=== PATIENT | male | born 1965 | race Caucasian/White ===

== ENCOUNTER → 2021-10-07 | Outpatient (REF) | payer SELFPAY ==
[2021-10-07 08:32] LABS: Erythrocyte Sedimentation Rate 59 mm/hr (0-20)
[2021-10-07 08:34] LABS: Absolute Lymphocyte Count 1.48 X10^3/uL (0.83-4.51); Absolute Neutrophil Count 2.8 X10^3/uL (2.0-7.7); Basophil# 0.06 X10^3/uL; Basophil% 1.2 % (0-1); Eosinophils% 5.8 % (0-5); Hemoglobin 9.1 g/dL (13.0-16.5); Lymphocyte # 1.48 X10^3/ul (0.83-4.51); Lymphocyte % 28.5 % (19-41); Mean Corp Hgb Conc 30.3 g/dL (32-36); Mean Corpuscular Hgb 27.8 pg (27.0-32.0); Mean Corpuscular Volume 91.7 fL (80-94); Mean Platelet Vol. 9.2 fl (6.2-12.0); Monocyte# 0.52 X10^3/uL; NRBC Flagged by Analyzer 0 % (0-5); Neutrophil # 2.81 X10^3/uL (2.7-7.7); Neutrophil % 54.1 % (47-70); Platelet Count 374 K/mm3 (150-450); RBC Distribution Width SD 50.4 fl (35.1-43.9); Red Blood Count 3.27 M/mm3 (4.6-6.2); White Blood Count 5.2 K/mm3 (4.4-11.0)
[2021-10-07 08:45] LABS: ALB/GLOB Ratio 0.6 RATIO (0.9-2.4); AST(SGOT) 14 U/L (15-37); Alanine Aminotransfer ALT/SGPT 11 U/L (16-61); Albumin, Serum 2.6 g/dL (3.2-5.0); Alkaline Phosphatase 141 U/L (45-117); Anion Gap 7 (5-15); BUN 21 mg/dL (7-18); BUN/Creat Ratio 22.2 RATIO (10-20); Calcium,Total 8.9 mg/dL (8.5-10.1); Chloride 107 mmol/L (98-107); Creatinine, Serum 0.94 mg/dL (0.70-1.30); EST Glomerular Filtration Rate 87 mL/min (>60); Est Glom Filt Rate - Afr Amer 105 mL/min (>60); Globulin 4.7 g/dL (2.2-4.2); Glucose 88 mg/dL (74-106); Potassium 3.8 mmol/L (3.5-5.1); Protein, Total 7.3 g/dL (6.4-8.2); Sodium Level 142 mmol/L (136-145)
== END | disposition home or self-care (01) ==
LOC: OLS.SANC 06:10
PROVIDERS: Visit Provider Internal Medicine
DX: I10 Essential (primary) hypertension (principal); J44.9 Chronic obstructive pulmonary disease, unspecified; E03.9 Hypothyroidism, unspecified
CPT/HCPCS: 80053; 85025; 85652; 86140

== ENCOUNTER → 2021-10-14 | Outpatient (REF) | payer MEDICARE, MEDICAID, SELFPAY ==
[2021-10-14 09:52] LABS: Absolute Lymphocyte Count 0.64 X10^3/uL (0.83-4.51); Absolute Neutrophil Count 2.3 X10^3/uL (2.0-7.7); Basophil# 0.04 X10^3/uL; Basophil% 1.1 % (0-1); Eosinophil# 0.24 X10^3/uL; Eosinophils% 6.8 % (0-5); Hematocrit 46.4 % (40-54); Hemoglobin 13.9 g/dL (13.0-16.5); Lymphocyte # 0.64 X10^3/ul (0.83-4.51); Lymphocyte % 18.1 % (19-41); Mean Corpuscular Hgb 26.3 pg (27.0-32.0); Mean Corpuscular Volume 87.7 fL (80-94); Mean Platelet Vol. 9.1 fl (6.2-12.0); Monocyte# 0.31 X10^3/uL; Monocyte% 8.8 % (0-10); NRBC Flagged by Analyzer 0 % (0-5); Neutrophil # 2.28 X10^3/uL (2.7-7.7); Neutrophil % 64.6 % (47-70); Platelet Count 194 K/mm3 (150-450); RBC Distribution Width CV 14.9 % (11.6-14.6); RBC Distribution Width SD 47.8 fl (35.1-43.9); Red Blood Count 5.29 M/mm3 (4.6-6.2); White Blood Count 3.5 K/mm3 (4.4-11.0)
[2021-10-14 10:06] LABS: Erythrocyte Sedimentation Rate 40 mm/hr (0-20)
[2021-10-14 10:20] LABS: ALB/GLOB Ratio 0.6 RATIO (0.9-2.4); AST(SGOT) 14 U/L (15-37); Alanine Aminotransfer ALT/SGPT 12 U/L (16-61); Albumin, Serum 2.7 g/dL (3.2-5.0); Alkaline Phosphatase 113 U/L (45-117); Anion Gap 7 (5-15); BUN 18 mg/dL (7-18); BUN/Creat Ratio 18.1 RATIO (10-20); Calcium,Total 9.1 mg/dL (8.5-10.1); Chloride 105 mmol/L (98-107); EST Glomerular Filtration Rate 82 mL/min (>60); Est Glom Filt Rate - Afr Amer 99 mL/min (>60); Globulin 4.6 g/dL (2.2-4.2); Glucose 110 mg/dL (74-106); Potassium 4.1 mmol/L (3.5-5.1); Protein, Total 7.3 g/dL (6.4-8.2); Sodium Level 140 mmol/L (136-145)
== END | disposition home or self-care (01) ==
LOC: OLS.SANC 04:00
PROVIDERS: Referring Provider Internal Medicine; Visit Provider Internal Medicine
DX: I10 Essential (primary) hypertension (principal); J44.9 Chronic obstructive pulmonary disease, unspecified; M19.90 Unspecified osteoarthritis, unspecified site
CPT/HCPCS: 80053; 85025; 85652; 86140

== ENCOUNTER → 2021-10-21 | Outpatient (REF) | payer MEDICARE, MEDICAID, SELFPAY ==
[2021-10-21 09:07] LABS: Erythrocyte Sedimentation Rate 70 mm/hr (0-20)
[2021-10-21 09:09] LABS: Absolute Lymphocyte Count 1.06 X10^3/uL (0.83-4.51); Absolute Neutrophil Count 4.4 X10^3/uL (2.0-7.7); Basophil# 0.07 X10^3/uL; Basophil% 1.1 % (0-1); Eosinophil# 0.33 X10^3/uL; Eosinophils% 5.2 % (0-5); Hemoglobin 9.4 g/dL (13.0-16.5); Lymphocyte # 1.06 X10^3/ul (0.83-4.51); Lymphocyte % 16.6 % (19-41); Mean Corp Hgb Conc 30.3 g/dL (32-36); Mean Corpuscular Hgb 26.6 pg (27.0-32.0); Mean Corpuscular Volume 87.6 fL (80-94); Mean Platelet Vol. 9.4 fl (6.2-12.0); Monocyte# 0.52 X10^3/uL; Monocyte% 8.1 % (0-10); NRBC Flagged by Analyzer 0 % (0-5); Neutrophil # 4.38 X10^3/uL (2.7-7.7); Neutrophil % 68.5 % (47-70); Platelet Count 270 K/mm3 (150-450); RBC Distribution Width CV 14.7 % (11.6-14.6); RBC Distribution Width SD 47.3 fl (35.1-43.9); Red Blood Count 3.54 M/mm3 (4.6-6.2); White Blood Count 6.4 K/mm3 (4.4-11.0)
[2021-10-21 09:28] LABS: ALB/GLOB Ratio 0.6 RATIO (0.9-2.4); AST(SGOT) 10 U/L (15-37); Alanine Aminotransfer ALT/SGPT 9 U/L (16-61); Albumin, Serum 2.9 g/dL (3.2-5.0); Alkaline Phosphatase 115 U/L (45-117); Anion Gap 5 (5-15); BUN 21 mg/dL (7-18); BUN/Creat Ratio 21.6 RATIO (10-20); Calcium,Total 9.2 mg/dL (8.5-10.1); Chloride 106 mmol/L (98-107); Creatinine, Serum 0.97 mg/dL (0.70-1.30); EST Glomerular Filtration Rate 84 mL/min (>60); Est Glom Filt Rate - Afr Amer 102 mL/min (>60); Globulin 4.8 g/dL (2.2-4.2); Glucose 91 mg/dL (74-106); Potassium 4.3 mmol/L (3.5-5.1); Protein, Total 7.7 g/dL (6.4-8.2); Sodium Level 139 mmol/L (136-145)
== END | disposition home or self-care (01) ==
LOC: OLS.SANC 04:00
PROVIDERS: Referring Provider Internal Medicine; Visit Provider Internal Medicine
DX: M00.9 Pyogenic arthritis, unspecified (principal)
CPT/HCPCS: 36415; 80053; 85025; 85652; 86140

== ENCOUNTER → 2021-10-28 | Outpatient (REF) | payer MEDICARE, MEDICAID, SELFPAY ==
[2021-10-28 09:00] LABS: Erythrocyte Sedimentation Rate 35 mm/hr (0-20)
[2021-10-28 09:02] LABS: Absolute Lymphocyte Count 1.25 X10^3/uL (0.83-4.51); Absolute Neutrophil Count 4.4 X10^3/uL (2.0-7.7); Basophil# 0.09 X10^3/uL; Basophil% 1.3 % (0-1); Eosinophil# 0.51 X10^3/uL; Eosinophils% 7.3 % (0-5); Lymphocyte # 1.25 X10^3/ul (0.83-4.51); Lymphocyte % 17.8 % (19-41); Mean Corp Hgb Conc 30.3 g/dL (32-36); Mean Corpuscular Hgb 26.4 pg (27.0-32.0); Mean Corpuscular Volume 87.1 fL (80-94); Mean Platelet Vol. 9.8 fl (6.2-12.0); Monocyte# 0.77 X10^3/uL; NRBC Flagged by Analyzer 0 % (0-5); Neutrophil # 4.37 X10^3/uL (2.7-7.7); Neutrophil % 62.2 % (47-70); Platelet Count 309 K/mm3 (150-450); RBC Distribution Width SD 47.6 fl (35.1-43.9); Red Blood Count 3.79 M/mm3 (4.6-6.2)
[2021-10-28 09:05] LABS: ALB/GLOB Ratio 0.6 RATIO (0.9-2.4); AST(SGOT) 17 U/L (15-37); Alanine Aminotransfer ALT/SGPT 7 U/L (16-61); Albumin, Serum 3.1 g/dL (3.2-5.0); Alkaline Phosphatase 123 U/L (45-117); Anion Gap 6 (5-15); BUN 19 mg/dL (7-18); BUN/Creat Ratio 18.3 RATIO (10-20); Calcium,Total 9.9 mg/dL (8.5-10.1); Chloride 108 mmol/L (98-107); Creatinine, Serum 1.04 mg/dL (0.70-1.30); EST Glomerular Filtration Rate 78 mL/min (>60); Est Glom Filt Rate - Afr Amer 94 mL/min (>60); Glucose 79 mg/dL (74-106); Potassium 3.8 mmol/L (3.5-5.1); Protein, Total 8.1 g/dL (6.4-8.2); Sodium Level 142 mmol/L (136-145)
== END | disposition home or self-care (01) ==
LOC: OLS.SANC 05:00
PROVIDERS: Visit Provider Internal Medicine
DX: E03.9 Hypothyroidism, unspecified (principal); M00.20 Other streptococcal arthritis, unspecified joint; J44.9 Chronic obstructive pulmonary disease, unspecified
CPT/HCPCS: 36415; 80053; 85025; 85652; 86140

== ENCOUNTER → 2022-12-01 | Outpatient (REF) | payer MEDICARE, MEDICAID, SELFPAY ==
[2022-12-01 09:31] LABS: Absolute Lymphocyte Count 0.93 X10^3/uL (0.83-4.51); Absolute Neutrophil Count 4.8 X10^3/uL (2.0-7.7); Basophil# 0.07 X10^3/uL; Eosinophil# 0.53 X10^3/uL; Eosinophils% 7.7 % (0-5); Hematocrit 33.6 % (40-54); Hemoglobin 9.7 g/dL (13.0-16.5); Lymphocyte # 0.93 X10^3/ul (0.83-4.51); Lymphocyte % 13.5 % (19-41); Mean Corp Hgb Conc 28.9 g/dL (32-36); Mean Corpuscular Hgb 26.3 pg (27.0-32.0); Mean Corpuscular Volume 91.1 fL (80-94); Monocyte# 0.48 X10^3/uL; NRBC Flagged by Analyzer 0 % (0-5); Neutrophil # 4.83 X10^3/uL (2.7-7.7); Neutrophil % 70.4 % (47-70); Platelet Count 345 K/mm3 (150-450); RBC Distribution Width CV 15.9 % (11.6-14.6); RBC Distribution Width SD 52.8 fl (35.1-43.9); Red Blood Count 3.69 M/mm3 (4.6-6.2); White Blood Count 6.9 K/mm3 (4.4-11.0)
[2022-12-01 09:43] LABS: Vancomycin, Trough Level 16.4 ug/mL (5.0-15.0)
[2022-12-01 09:50] LABS: Creatinine, Serum 1.11 mg/dL (0.70-1.30); EST Glomerular Filtration Rate 72 mL/min (>60); Est Glom Filt Rate - Afr Amer 87 mL/min (>60)
== END ==
LOC: OLS.SANC 08:25
PROVIDERS: Visit Provider Internal Medicine
DX: J44.9 Chronic obstructive pulmonary disease, unspecified (principal); I10 Essential (primary) hypertension; E03.9 Hypothyroidism, unspecified; M13.811 Other specified arthritis, right shoulder
CPT/HCPCS: 36415; 80202; 82565; 85025

== ENCOUNTER → 2022-12-03 | Outpatient (REF) | payer OTHER, MEDICAID, SELFPAY ==
[2022-12-03 09:05] LABS: Hematocrit 31.3 % (40-54); Hemoglobin 9.2 g/dL (13.0-16.5); Mean Corp Hgb Conc 29.4 g/dL (32-36); Mean Corpuscular Hgb 26.4 pg (27.0-32.0); Mean Corpuscular Volume 89.9 fL (80-94); Mean Platelet Vol. 9.1 fl (6.2-12.0); Platelet Count 308 K/mm3 (150-450); RBC Distribution Width SD 53.2 fl (35.1-43.9); Red Blood Count 3.48 M/mm3 (4.6-6.2); White Blood Count 6.8 K/mm3 (4.4-11.0)
[2022-12-03 09:20] LABS: Anion Gap 7 (5-15); BUN 18 mg/dL (7-18); BUN/Creat Ratio 16.7 RATIO (10-20); Calcium,Total 8.9 mg/dL (8.5-10.1); Chloride 112 mmol/L (98-107); Creatinine, Serum 1.08 mg/dL (0.70-1.30); EST Glomerular Filtration Rate 74 mL/min (>60); Est Glom Filt Rate - Afr Amer 90 mL/min (>60); Glucose 84 mg/dL (74-106); Potassium 4.3 mmol/L (3.5-5.1); Sodium Level 145 mmol/L (136-145)
== END ==
LOC: OLS.SANC 05:00
PROVIDERS: Visit Provider Internal Medicine
DX: N40.0 Benign prostatic hyperplasia without lower urinary tract symptoms (principal); I10 Essential (primary) hypertension
CPT/HCPCS: 36415; 80048; 85027

== ENCOUNTER → 2022-12-09 | Outpatient (REF) | payer OTHER, MEDICAID, SELFPAY ==
[2022-12-09 09:44] LABS: Absolute Lymphocyte Count 1.02 X10^3/uL (0.83-4.51); Absolute Neutrophil Count 6.2 X10^3/uL (2.0-7.7); Basophil# 0.07 X10^3/uL; Basophil% 0.8 % (0-1); Eosinophil# 0.68 X10^3/uL; Eosinophils% 7.7 % (0-5); Hemoglobin 9.7 g/dL (13.0-16.5); Lymphocyte # 1.02 X10^3/ul (0.83-4.51); Lymphocyte % 11.6 % (19-41); Mean Corp Hgb Conc 28.5 g/dL (32-36); Mean Corpuscular Hgb 25.1 pg (27.0-32.0); Mean Corpuscular Volume 88.1 fL (80-94); Mean Platelet Vol. 9.3 fl (6.2-12.0); Monocyte% 9.1 % (0-10); NRBC Flagged by Analyzer 0 % (0-5); Neutrophil # 6.18 X10^3/uL (2.7-7.7); Neutrophil % 70.2 % (47-70); Platelet Count 297 K/mm3 (150-450); RBC Distribution Width CV 16.2 % (11.6-14.6); RBC Distribution Width SD 52.3 fl (35.1-43.9); Red Blood Count 3.86 M/mm3 (4.6-6.2); White Blood Count 8.8 K/mm3 (4.4-11.0)
[2022-12-09 10:01] LABS: Vancomycin, Trough Level 17.9 ug/mL (5.0-15.0)
[2022-12-09 10:06] LABS: Creatinine, Serum 1.28 mg/dL (0.70-1.30); EST Glomerular Filtration Rate 61 mL/min (>60); Est Glom Filt Rate - Afr Amer 74 mL/min (>60)
== END ==
LOC: OLS.SANC 05:00
PROVIDERS: Visit Provider Internal Medicine
DX: J44.9 Chronic obstructive pulmonary disease, unspecified (principal); I10 Essential (primary) hypertension; B95.61 Methicillin susceptible Staphylococcus aureus infection as the cause of diseases classified elsewhere; Z47.1 Aftercare following joint replacement surgery
CPT/HCPCS: 36415; 80202; 82565; 85025

== ENCOUNTER → 2022-12-15 | Outpatient (REF) | payer OTHER, MEDICAID, SELFPAY ==
[2022-12-15 09:47] LABS: Absolute Lymphocyte Count 1.55 X10^3/uL (0.83-4.51); Absolute Neutrophil Count 6.1 X10^3/uL (2.0-7.7); Basophil# 0.09 X10^3/uL; Eosinophil# 0.53 X10^3/uL; Hematocrit 38.2 % (40-54); Hemoglobin 10.7 g/dL (13.0-16.5); Lymphocyte # 1.55 X10^3/ul (0.83-4.51); Lymphocyte % 17.4 % (19-41); Mean Corpuscular Hgb 24.5 pg (27.0-32.0); Mean Corpuscular Volume 87.4 fL (80-94); Mean Platelet Vol. 9.6 fl (6.2-12.0); Monocyte# 0.58 X10^3/uL; Monocyte% 6.5 % (0-10); NRBC Flagged by Analyzer 0 % (0-5); Neutrophil # 6.09 X10^3/uL (2.7-7.7); Neutrophil % 68.4 % (47-70); Platelet Count 392 K/mm3 (150-450); RBC Distribution Width CV 16.3 % (11.6-14.6); RBC Distribution Width SD 52.4 fl (35.1-43.9); Red Blood Count 4.37 M/mm3 (4.6-6.2); White Blood Count 8.9 K/mm3 (4.4-11.0)
[2022-12-15 09:51] LABS: Anion Gap 2 (5-15); BUN 22 mg/dL (7-18); BUN/Creat Ratio 16.1 RATIO (10-20); Calcium,Total 9.4 mg/dL (8.5-10.1); Chloride 108 mmol/L (98-107); Creatinine, Serum 1.37 mg/dL (0.70-1.30); EST Glomerular Filtration Rate 56 mL/min (>60); Est Glom Filt Rate - Afr Amer 68 mL/min (>60); Glucose 109 mg/dL (74-106); Sodium Level 136 mmol/L (136-145)
[2022-12-15 09:59] LABS: Vancomycin, Trough Level 12.9 ug/mL (5.0-15.0)
== END ==
LOC: OLS.SANC 05:00
PROVIDERS: Visit Provider Internal Medicine
DX: I10 Essential (primary) hypertension; B95.61 Methicillin susceptible Staphylococcus aureus infection as the cause of diseases classified elsewhere
CPT/HCPCS: 36415; 80048; 80202; 85025

== ENCOUNTER 2024-04-07 16:36 | Emergency (ER) | payer MEDICARE, MEDICAID, SELFPAY ==
[2024-04-07] VITALS (9 sets, daily range): BP systolic 103–128; BP diastolic 60–77; PULSE 75–86; RESP 13–16; TEMP 35.7–36.9; O2SAT 94–98; BMI 22.9
[2024-04-07] MEDS: 0.9% Normal Saline (1000mL) 1,000 ML 999 ML IV (17:33)
[2024-04-07 17:48] LABS: Absolute Neutrophil Count 11.9 X10^3/uL (2.0-7.7); Basophil# 0.02 X10^3/uL; Basophil% 0.1 % (0-1); Eosinophil# 5.11 X10^3/uL; Eosinophils% 27.9 % (0-5); Hematocrit 31.2 % (40-54); Hemoglobin 9.6 g/dL (13.0-16.5); Lymphocyte % 3.8 % (19-41); Mean Corp Hgb Conc 30.8 g/dL (32-36); Mean Corpuscular Hgb 25.9 pg (27.0-32.0); Mean Corpuscular Volume 84.3 fL (80-94); Monocyte# 0.36 X10^3/uL; NRBC Flagged by Analyzer 0 % (0-5); Neutrophil # 11.93 X10^3/uL (2.7-7.7); Neutrophil % 65.2 % (47-70); POSITIVE DIFFERENTIAL YES; POSITIVE MORPHOLOGY YES; Platelet Count 120 K/mm3 (150-450); RBC Distribution Width CV 25.2 % (11.6-14.6); RBC Distribution Width SD 76.8 fl (35.1-43.9); White Blood Count 18.3 K/mm3 (4.4-11.0)
[2024-04-07 17:51] LABS: Differential Indicated SCAN CRITERIA MET
[2024-04-07 18:12] LABS: ALB/GLOB Ratio 0.7 RATIO (0.9-2.4); AST(SGOT) 10 U/L (15-37); Alanine Aminotransfer ALT/SGPT 15 U/L (16-61); Albumin, Serum 2.1 g/dL (3.2-5.0); Alkaline Phosphatase 99 U/L (45-117); Anion Gap 8 (5-15); BUN 81 mg/dL (7-18); BUN/Creat Ratio 15.3 RATIO (10-20); Calcium,Total 7.9 mg/dL (8.5-10.1); Chloride 109 mmol/L (98-107); Creatinine, Serum 5.31 mg/dL (0.70-1.30); EST Glomerular Filtration Rate 12 mL/min (>60); Est Glom Filt Rate - Afr Amer 14 mL/min (>60); Estimated Creatinine Clearance 15.84 ml/min; Globulin 3.1 g/dL (2.2-4.2); Glucose 97 mg/dL (74-106); Potassium 3.6 mmol/L (3.5-5.1); Protein, Total 5.2 g/dL (6.4-8.2); Sodium Level 138 mmol/L (136-145)
[2024-04-07 18:19] LABS: Differential Comment SCANNED
[2024-04-07 18:20] LABS: Anisocytosis 2+; Crenated RBC 1+; Hypochromasia 1+
[2024-04-07 18:21] LABS: Ovalocyte RARE; Schistocytes RARE
[2024-04-07 18:30] LABS: Lactic Acid 0.7 mmol/L (0.4-1.9)
--- NOTE | 2024-04-07 18:33 | EDS_ITS ---
HPI <PEPPER Huerta - Last Filed: 04/07/24 20:36> History of Present Illness Chief Complaint: Abn Labs Narrative Narrative: Patient is a 59-year-old male who presents to the emergency department for elevated creatinine from the [facility]. Patient was recently at [facility] for multiple issues. Patient has a past medical history of osteomyelitis of both shoulders, as well as the left hip, patient does have MRSA in his urine, patient has been on IV medications for several weeks, did have a significant allergy to daptomycin which caused some kidney injury. Patient is currently receiving ceftaroline fosamil 2 times a day for the osteomyelitis. The [facility] did some blood work, and secondary to the creatinine being above 5, they referred him to the emergency department. Patient does have a long history of hypertension, history of mouth cancer, alcohol abuse, cirrhosis and is here for evaluation. [facility] <PEPPER Huerta - Last Filed: 04/07/24 20:36> [facility] Medical History (Updated 04/07/24 @ 20:36 by PEPPER Huerta) Hypothyroidism, unspecified Facial weakness following cerebral infarction Acute systolic (congestive) heart failure Anxiety disorder, unspecified Centrilobular emphysema Acute embolism and thrombosis of unspecified deep veins of left distal lower extremity Mixed hyperlipidemia Other spondylosis with myelopathy, cervical region Pneumonitis due to inhalation of food and vomit Primary osteoarthritis, right shoulder Sleep apnea, unspecified Postprocedural seroma of a musculoskeletal structure following a musculoskeletal system procedure Osteomyelitis, unspecified Methicillin resistant Staphylococcus aureus infection as the cause of diseases classified elsewhere Gastro-esophageal reflux disease without esophagitis Essential (primary) hypertension Benign prostatic hyperplasia with lower urinary tract symptoms Alcoholic polyneuropathy Alcohol abuse, in remission Acute respiratory failure with hypoxia Acute cystitis with hematuria Allergy/AdvReac Type Severity Reaction Status Date / Time No Known Allergies Allergy Verified 04/07/24 16:37 Social History Smoking Status: Former smoker ROS <PEPPER Huerta - Last Filed: 04/07/24 20:36> ROS ED ROS Narrative Constitutional: Negative for fever, chills, weight loss. Positive for weakness Eyes: Negative for vision loss, vision change, double vision ENT: Negative for any sore throat, ear pain, congestion Cardiovascular: Negative for any chest pain, tightness, palpitations Respiratory: Negative for any cough, sputum production, hemoptysis, dyspnea, dyspnea on exertion, orthopnea Gastrointestinal: Negative for any abdominal pain, nausea, vomiting, diarrhea, constipation, blood in stool, blood in vomit : Negative for any urinary frequency, dysuria, retention, blood in urine Muscle skeletal: Negative for any neck pain, back pain. Positive for multiple complaints of hip pain, bilateral shoulder pain Neurological: Negative for any headache, syncope, dizziness Skin: Negative for any abrasions, lacerations. Positive for itching, dry skin Psychiatric: Negative for any depression, anxiety, stress, suicidal ideation, homicidal ideation Hematologic: Negative for any excessive bruising, easy bleeding EXAM <PEPPER Huerta - Last Filed: 04/07/24 20:36> Physical Exam Narrative Exam Narrative: Vital signs reviewed. Patient is difficult to understand secondary to his history of mouth cancer. Patient has dry skin throughout his entire body. Multiple areas of flaking skin. Patient does have some open sores some itching. HEET: Head normocephalic atraumatic, TMs clear bilaterally. Posterior pharynx is clear, dry mucous membranes. Nares clear bilaterally. Neck: Supple with no lymphadenopathy or tenderness. No signs of meningismus. Cardiac: Regular rate and rhythm no murmurs gallops or rubs, equal peripheral pulses bilaterally. Respiratory: Lungs clear to auscultation bilaterally. No chest tenderness. Abdomen: Soft, nontender, nondistended. No abdominal bruit or pulsatile masses. No hepatosplenomegaly Extremities: Patient does have some edema to the left arm, he states the left shoulder is out of place and they know this. Patient also complained of pain in his right shoulder, as well as his hips. Patient does have known osteomyelitis of all these areas. Neuro: Cranial nerves II through XII intact, no focal neurological deficits. Skin: Skin shows dry flaking skin throughout his face and feet. Backs/flank: No CVA tenderness, no midline spinal tenderness, no deformity. Psych: Normal mood and affect. No SI, HI or acute psychosis. Const Vital Signs: 04/07/24 16:37 04/07/24 16:39 04/07/24 18:39 Temperature 97.4 F L 97.4 F L 96.3 F L Temperature Source Oral Oral Temporal Pulse Rate 78 78 76 Respiratory Rate 13 13 16 Blood Pressure 105/61 105/61 128/63 H Blood Pressure Mean 75 75 84 Pulse Ox 97 97 97 Oxygen Delivery Method Room Air Room Air Room Air 04/07/24 19:00 04/07/24 20:00 04/07/24 21:00 Temperature 97.0 F L 98.4 F 98.2 F Temperature Source Temporal Oral Oral Pulse Rate 86 75 80 Respiratory Rate 16 16 16 Blood Pressure 110/61 108/60 107/68 Blood Pressure Mean 77 76 81 Pulse Ox 94 97 98 Oxygen Delivery Method Room Air Room Air 04/07/24 22:00 04/07/24 22:13 04/07/24 23:00 Temperature 97.9 F 98.3 F Temperature Source Oral Oral Pulse Rate 83 75 85 Respiratory Rate 16 15 16 Blood Pressure 103/66 114/64 103/77 Blood Pressure Mean 78 80 85 Pulse Ox 96 94 94 Oxygen Delivery Method Room Air Room Air Room Air Positive cachectic and unkempt General Appearance ED: unkempt and cachectic Nutritional Appearance: cachectic Psych Appearance: unkempt <Dr. Christofer Goldsmith DO - Last Filed: 04/07/24 23:39> Physical Exam Const Vital Signs: 04/07/24 16:37 04/07/24 16:39 04/07/24 18:39 Temperature 97.4 F L 97.4 F L 96.3 F L Temperature Source Oral Oral Temporal Pulse Rate 78 78 76 Respiratory Rate 13 13 16 Blood Pressure 105/61 105/61 128/63 H Blood Pressure Mean 75 75 84 Pulse Ox 97 97 97 Oxygen Delivery Method Room Air Room Air Room Air 04/07/24 19:00 04/07/24 20:00 04/07/24 21:00 Temperature 97.0 F L 98.4 F 98.2 F Temperature Source Temporal Oral Oral Pulse Rate 86 75 80 Respiratory Rate 16 16 16 Blood Pressure 110/61 108/60 107/68 Blood Pressure Mean 77 76 81 Pulse Ox 94 97 98 Oxygen Delivery Method Room Air Room Air 04/07/24 22:00 04/07/24 22:13 04/07/24 23:00 Temperature 97.9 F 98.3 F Temperature Source Oral Oral Pulse Rate 83 75 85 Respiratory Rate 16 15 16 Blood Pressure 103/66 114/64 103/77 Blood Pressure Mean 78 80 85 Pulse Ox 96 94 94 Oxygen Delivery Method Room Air Room Air Room Air MDM <PEPPER Huerta - Last Filed: 04/07/24 20:36> MDM Lab Data Labs: Laboratory Results - last 24 hr 04/07/24 04/07/24 17:30 18:00 WBC 18.3 H RBC 3.70 L Hgb 9.6 L Hct 31.2 L MCV 84.3 MCH 25.9 L MCHC 30.8 L RDW Std Deviation 76.8 H RDW Coeff of Tammy 25.2 H Plt Count 120 L MPV TNP Immature Gran % (Auto) 1.000 H Neut % (Auto) 65.2 Lymph % (Auto) 3.8 L [place] % (Auto) 2.0 Eos % (Auto) 27.9 H Baso % (Auto) 0.1 Absolute Neuts (auto) 11.9 H Absolute Lymphs (auto) 0.70 L Nucleated RBC % 0 Differential Comment SCANNED Hypochromasia 1+ Anisocytosis 2+ Ovalocytes RARE Crenated Cell 1+ Schistocytes RARE Sodium 138 Potassium 3.6 Chloride 109 H Carbon Dioxide 21.0 Anion Gap 8 BUN 81 H Creatinine 5.31 H Estim Creat Clear Calc 15.84 Est GFR (MDRD) Af Amer 14 L Est GFR (MDRD) Non-Af 12 L BUN/Creatinine Ratio 15.3 Glucose 97 Lactic Acid 0.7 Calcium 7.9 L Total Bilirubin 0.20 AST 10 L ALT 15 L Alkaline Phosphatase 99 Total Protein 5.2 L Albumin 2.1 L Globulin 3.1 Albumin/Globulin Ratio 0.7 L Radiography Diagnostic Testing: Clinical Impression(s) from Imaging Studies Chest X-Ray 04/07/24 18:38 IMPRESSION: Chronic pulmonary disease with probable diffuse fibrosis. Patchy areas of pulmonary opacities/infiltrates are not excluded. CT scan suggested. Electronically Signed: Yg Abraham MD at 18:54 EDT , Chest/Abdomen/Pelvis CT 04/07/24 18:47 IMPRESSION: 1. Limited as above. 2. Severe chronic pulmonary disease. Severe diffuse fibrosis. Patchy areas of more focal pulmonary density primarily in the right lung which could be superimposed pneumonia or neoplasm. 3. Several markedly abnormal skeletal structures especially the left shoulder and left hip for which chronic septic arthritis is possible. Electronically Signed: Yg Abraham MD at 19:38 EDT , Treatment and Re-Evaluation :: Differential diagnosis includes however is not limited to: ALLISON, medication reaction, dehydration, worsening infection of osteomyelitis, worsening MRSA infe ction Patient appears unkempt, patient has dry skin, is difficult to understand secondary to his history of mouth cancer. Patient seems to have been in and out of hospitals over the last several months. I did look at the patient's laboratory values as well as the medications that the patient is on at the [facility]. He does have a port to the right chest. This is a PICC line. Patient did receive repeat laboratory values, patient CBC does show leukocytosis with a white blood count of 18.3, patient's hemoglobin 9.6, this appears stable. Patient's chemistries show multiple abnormalities, patient's BUN is 81 with a creatinine of 5.3, a year ago the patient's creatinine was 1.3, patient's lactic acid was negative. AST and ALT is low. This is chronic. Patient CT scan of the chest abdomen pelvis shows severe chronic pulmonary disease, severe diffuse fibrosis, patchy areas of more focal pulmonary density primary in the right lung which could be superimposed pneumonia or neoplasm. Several markedly abnormal skeletal structures especially the left shoulder and left hip for which chronic septic arthritis is possible. At this time, I do believe the patient will need to be transferred back to the [facility] secondary to the patient being there for greater than 1 month a few days ago. Patient is still not urinating, we did offer straight cath however he refused. I spoke with Dr. Guallpa at [facility], he will accept the patient. Patient will be transferred to [facility] my [place]. <Dr. Christofer Goldsmith, DO - Last Filed: 04/07/24 23:39> [facility] History & Record Review Discussion w/independent historian: Patient and Family Lab Data Attestation: I reviewed the patient's lab results. Labs: Laboratory Results - last 24 hr 04/07/24 04/07/24 17:30 18:00 WBC 18.3 H RBC 3.70 L Hgb 9.6 L Hct 31.2 L MCV 84.3 MCH 25.9 L MCHC 30.8 L RDW Std Deviation 76.8 H RDW Coeff of Tammy 25.2 H Plt Count 120 L MPV TNP Immature Gran % (Auto) 1.000 H Neut % (Auto) 65.2 Lymph % (Auto) 3.8 L [place] % (Auto) 2.0 Eos % (Auto) 27.9 H Baso % (Auto) 0.1 Absolute Neuts (auto) 11.9 H Absolute Lymphs (auto) 0.70 L Nucleated RBC % 0 Differential Comment SCANNED Hypochromasia 1+ Anisocytosis 2+ Ovalocytes RARE Crenated Cell 1+ Schistocytes RARE Sodium 138 Potassium 3.6 Chloride 109 H Carbon Dioxide 21.0 Anion Gap 8 BUN 81 H Creatinine 5.31 H Estim Creat Clear Calc 15.84 Est GFR (MDRD) Af Amer 14 L Est GFR (MDRD) Non-Af 12 L BUN/Creatinine Ratio 15.3 Glucose 97 Lactic Acid 0.7 Calcium 7.9 L Total Bilirubin 0.20 AST 10 L ALT 15 L Alkaline Phosphatase 99 Total Protein 5.2 L Albumin 2.1 L Globulin 3.1 Albumin/Globulin Ratio 0.7 L Radiography Diagnostic Testing: Clinical Impression(s) from Imaging Studies Chest X-Ray 04/07/24 18:38 IMPRESSION: Chronic pulmonary disease with probable diffuse fibrosis. Patchy areas of pulmonary opacities/infiltrates are not excluded. CT scan suggested. Electronically Signed: Yg Abraham MD at 18:54 EDT , Chest/Abdomen/Pelvis CT 04/07/24 18:47 IMPRESSION: 1. Limited as above. 2. Severe chronic pulmonary disease. Severe diffuse fibrosis. Patchy areas of more focal pulmonary density primarily in the right lung which could be superimposed pneumonia or neoplasm. 3. Several markedly abnormal skeletal structures especially the left shoulder and left hip for which chronic septic arthritis is possible. Electronically Signed: Yg Abraham MD at 19:38 EDT , Treatment and Re-Evaluation :: Differential diagnosis includes however is not limited to: ALLISON, medication reaction, dehydration, worsening infection of osteomyelitis, worsening MRSA infection Patient appears unkempt, patient has dry skin, is difficult to understand secondary to his history of mouth cancer. Patient seems to have been in and out of hospitals over the last several months. I did look at the patient's laboratory values as well as the medications that the patient is on at the [facility]. He does have a port to the right chest. This is a PICC line. Patient did receive repeat laboratory values, patient CBC does show leukocytosis with a white blood count of 18.3, patient's hemoglobin 9.6, this appears stable. Patient's chemistries show multiple abnormalities, patient's BUN is 81 with a creatinine of 5.3, a year ago the patient's creatinine was 1.3, patient's lactic acid was negative. AST and ALT is low. This is chronic. Patient CT scan of the chest abdomen pelvis shows severe chronic pulmonary disease, severe diffuse fibrosis, patchy areas of more focal pulmonary density primary in the right lung which could be superimposed pneumonia or neoplasm. Several markedly abnormal skeletal structures especially the left shoulder and left hip for which chronic septic arthritis is possible. At this time, I do believe the patient will need to be transferred back to the [facility] secondary to the patient being there for greater than 1 month a few days ago. Patient is still not urinating, we did offer straight cath however he refused. I spoke with Dr. Guallpa at [facility], he will accept the patient. Patient will be transferred to [facility]. I have personally performed a face to face assessment of the patient and have reviewed the ДМИТРИЙ Note. I performed a substantive portion of the visit including all aspects of the following. My zavala findings include: History is 59-year-old male with multiple extensive medical problems presenting to the emergency department via EMS from [facility]. Reportedly the patient was being sent in for an elevated creatinine. Patient was recently admitted for about 1 month at [facility] and was transferred to nursing facility on Thursday approximately 3 days ago. Family states that he had an allergic reaction to an IV medication at while at [facility] and that his skin redness and peeling is not new and in fact better. He has history of osteomyelitis and has MRSA in his urine. Patient himself cannot really tell me much regarding his care. Exam is afebrile vital signs appear stable. Patient has significantly limited range of motion of the shoulders. His skin is slightly erythematous and is peeling but not sloughing off. I do not appreciate blister formation. There is a PICC line present. No indwelling Rico catheter. Medical Decison Making I explained to the POA and his son and the patient at the bedside that I feel like it is most likely going to be best to transfer him to [facility] where he is just at is not of his care has been at this hospital have no old labs to compare to. They are comfortable with this. Patient has been accepted in transfer there by Dr. Guallpa. Discharge Plan Triage Chief Complaint: Abn Labs ED Midlevel Provider: Rishi Echeverria ED Provider: Christofer Goldsmith Dx/Rx/DC Orders Clinical Impression: Osteomyelitis of left shoulder, Hip osteomyelitis, left, Acute kidney injury, Acute dehydration, Dysuria Primary Care Provider: Manfred Flores Referrals: Manfred Flores DO [Primary Care Provider] - Print Language: Sri L[place]an Disposition Disposition: Acute Care Hospital Discharge Location: [facility]
--- NOTE | 2024-04-07 18:38 | RAD_ITS ---
STUDY: X-RAY CHEST REASON FOR EXAM: Male, 59 years old. COUGH TECHNIQUE: Single AP portable view of the chest. COMPARISON: None. FINDINGS: Right indwelling central line terminating about the level of the right hilum. The lungs are hyperexpanded. There are coarsened interstitial markings suggestive of mild chronic fibrosis. Patchy areas of possible infiltrates in the right upper lobe, right lung base, in the mid left lung. Recommend further evaluation with CT scan. No gross effusions. Normal size heart. Normal mediastinum and dean. Normal visualized pulmonary arteries. Normal visualized aortic arch and descending thoracic aorta. There are diffuse degenerative changes of the visualized thoracic spine. Postsurgical changes of the cervical spine. Severe deformities of both shoulders with chronic dislocation of the glenohumeral joints. There is no demonstrated abnormality of the visualized soft tissue structures of the upper abdomen. RAD/Chest 1 View (Portable) IMPRESSION: Chronic pulmonary disease with probable diffuse fibrosis. Patchy areas of pulmonary opacities/infiltrates are not excluded. CT scan suggested. Electronically Signed: Yg Abraham MD at 18:54 EDT ,
--- NOTE | 2024-04-07 18:45 | ED.RN ---
pt. cannot give urine sample at this time, refused catheter
--- NOTE | 2024-04-07 18:47 | CT_ITS ---
EXAM: CT CHEST, ABDOMEN AND PELVIS WITHOUT INTRAVENOUS CONTRAST CLINICAL INDICATION: cough TECHNIQUE: Helically acquired images were obtained of the chest, abdomen and pelvis without intravenous contrast. This CT exam was performed using one or more of the following dose reduction techniques: automated exposure control, adjustment of the mA and/or kV according to patient size, and/or use of iterative reconstruction technique. RADIATION DOSE: CTDIvol = 17.04 mGy, DLP = 2011.82 mGy-cm COMPARISON: No relevant prior studies available. FINDINGS: LIMITATIONS: Exam is limited by improper positioning of patient''s arms resulting in significant streak artifact. Also limited by absence of IV and oral contrast. CHEST: LUNGS AND PLEURAL SPACES: Hyperexpansion of the chest consistent with COPD severe chronic fibrosis with end-stage honeycombing in the apices worse on the right, Focal areas of irregular pulmonary density in the right apex and lateral right lower lobe each approximately 5-5.5 cm greatest dimension, seen may be additional areas of scarring, superimposed acute infiltrates, or neoplasm. No pneumothorax. No effusions. HEART: Small amounts of coronary artery calcifications are seen. Heart size is normal. No pericardial effusion. MEDIASTINUM: Although no gross mediastinal or hilar mass or adenopathy is seen, adenopathy is difficult to exclude without IV contrast was not given. Esophagus is unremarkable. No hiatal hernia. THYROID: Unremarkable. No thyroid lesions. ABDOMEN: LIVER: Unremarkable. Homogeneous. GALLBLADDER AND BILE DUCTS: Unremarkable. No calcified gallstones. No gallbladder distention or wall edema. No intra- or extrahepatic biliary ductal dilation. PANCREAS: Unremarkable. No focal cystic mass. SPLEEN: Unremarkable. Normal size without focal cystic or solid mass. ADRENALS: Unremarkable. No nodules. KIDNEYS AND URETERS: Unremarkable. Normal renal size and position. No hydronephrosis. STOMACH AND BOWEL: Evaluation of the GI tract is limited by absence of oral contrast. Cannot exclude stomach wall thickening. No dilated loops of bowel or evidence for obstruction. Cannot exclude segmental thickening of the marks of the small or large bowel. Cannot exclude enteritis or colitis. Appendix within normal limits. PELVIS: APPENDIX: No evidence of acute appendicitis. BLADDER: Unremarkable. REPRODUCTIVE: Unremarkable as visualized. No mass. CHEST, ABDOMEN and PELVIS: INTRAPERITONEAL SPACE: Unremarkable. No ascites or other fluid collection. No free air. BONES/JOINTS: Severe chronic deformities of both shoulders especially the left where there is extreme osteolysis of the proximal humerus, and evidence for large effusion. Severe chronic deformities of the left hip consisting of chronic dislocation, severe and complete resorption of the left femoral head and neck, and large effusion. Findings suggest chronic septic arthritis. Degenerative changes throughout the spine. Fusion between L1 and L2. Mild dextroconvex scoliosis. Focal AVN of the right femoral head. Several/chronic rib fractures. SOFT TISSUES: Unremarkable. No discrete abdominal or pelvic wall hernia. VASCULATURE: Heavily calcified aorta with no aneurysm. LYMPH NODES: Unremarkable. No enlarged lymph nodes. CT/CT Chest, Abd, Pelvis WO Cont IMPRESSION: 1. Limited as above. 2. Severe chronic pulmonary disease. Severe diffuse fibrosis. Patchy areas of more focal pulmonary density primarily in the right lung which could be superimposed pneumonia or neoplasm. 3. Several markedly abnormal skeletal structures especially the left shoulder and left hip for which chronic septic arthritis is possible. Electronically Signed: Yg Abraham MD at 19:38 EDT ,
[2024-04-08] VITALS: BP 110/75; PULSE 85; RESP 16; TEMP 36.8; O2SAT 95
[2024-04-08 00:01] VITALS: BP 110/75; PULSE 85; RESP 16; TEMP 36.8; O2SAT 94
[2024-04-08 01:00] VITALS: BP 87/72; PULSE 77; RESP 20; TEMP 36.6; O2SAT 95
== END 2024-04-08 01:59 | disposition short-term general hospital (02) ==
PROVIDERS: Nurse Practitioner; Emergency Provider Emergency Medicine; Visit Provider Emergency Medicine
DX: M86.8X1 Other osteomyelitis, shoulder (principal); M86.8X8 Other osteomyelitis, other site; J43.2 Centrilobular emphysema; N17.9 Acute kidney failure, unspecified; R30.0 Dysuria; E78.2 Mixed hyperlipidemia; I10 Essential (primary) hypertension; E86.0 Dehydration; Z87.891 Personal history of nicotine dependence; Z86.14 Personal history of Methicillin resistant Staphylococcus aureus infection
CPT/HCPCS: 71045; 71250; 74176; 80053; 83605; 85025; 96360; 96361; 99283; J7030; A4216

== ENCOUNTER → 2024-05-02 | Outpatient (REF) | payer MEDICARE, MEDICAID, SELFPAY ==
[2024-05-02 10:00] LABS: Hematocrit 26.3 % (40-54); Hemoglobin 8.1 g/dL (13.0-16.5); Mean Corp Hgb Conc 30.8 g/dL (32-36); Mean Corpuscular Hgb 27.9 pg (27.0-32.0); Mean Corpuscular Volume 90.7 fL (80-94); Mean Platelet Vol. 11.4 fl (6.2-12.0); POSITIVE MORPHOLOGY YES; Platelet Count 148 K/mm3 (150-450); RBC Distribution Width CV 23.7 % (11.6-14.6); RBC Distribution Width SD 77.2 fl (35.1-43.9); White Blood Count 9.8 K/mm3 (4.4-11.0)
[2024-05-02 10:02] LABS: Scan Indicated on CBC? Y/N YES- FLAGS NOTED
[2024-05-02 11:14] LABS: ALB/GLOB Ratio 0.7 RATIO (0.9-2.4); AST(SGOT) 22 U/L (15-37); Alanine Aminotransfer ALT/SGPT 19 U/L (16-61); Albumin, Serum 2.7 g/dL (3.2-5.0); Alkaline Phosphatase 125 U/L (45-117); Anion Gap 10 (5-15); BUN 78 mg/dL (7-18); BUN/Creat Ratio 14.7 RATIO (10-20); Calcium,Total 9.3 mg/dL (8.5-10.1); Chloride 110 mmol/L (98-107); Creatinine, Serum 5.32 mg/dL (0.70-1.30); EST Glomerular Filtration Rate 12 mL/min (>60); Est Glom Filt Rate - Afr Amer 14 mL/min (>60); Globulin 4.1 g/dL (2.2-4.2); Glucose 101 mg/dL (74-106); Potassium 4.4 mmol/L (3.5-5.1); Protein, Total 6.8 g/dL (6.4-8.2); Sodium Level 142 mmol/L (136-145)
== END ==
LOC: OLS.SANC 06:52
PROVIDERS: Visit Provider Internal Medicine
DX: D64.9 Anemia, unspecified (principal); J44.9 Chronic obstructive pulmonary disease, unspecified; I10 Essential (primary) hypertension; E78.5 Hyperlipidemia, unspecified
CPT/HCPCS: 36415; 80053; 85027

== ENCOUNTER → 2024-05-09 | Outpatient (REF) | payer MEDICARE, MEDICAID, SELFPAY ==
[2024-05-09 08:00] LABS: Hematocrit 25.9 % (40-54); Hemoglobin 7.6 g/dL (13.0-16.5); Mean Corp Hgb Conc 29.3 g/dL (32-36); Mean Corpuscular Hgb 27.5 pg (27.0-32.0); Mean Corpuscular Volume 93.8 fL (80-94); Mean Platelet Vol. 10.3 fl (6.2-12.0); POSITIVE MORPHOLOGY YES; Platelet Count 175 K/mm3 (150-450); RBC Distribution Width CV 22.5 % (11.6-14.6); RBC Distribution Width SD 75.6 fl (35.1-43.9); Red Blood Count 2.76 M/mm3 (4.6-6.2); White Blood Count 6.9 K/mm3 (4.4-11.0)
[2024-05-09 08:09] LABS: Scan Indicated on CBC? Y/N YES- FLAGS NOTED
[2024-05-09 08:41] LABS: Anion Gap 7 (5-15); BUN 36 mg/dL (7-18); BUN/Creat Ratio 8.6 RATIO (10-20); Calcium,Total 8.5 mg/dL (8.5-10.1); Chloride 109 mmol/L (98-107); Creatinine, Serum 4.17 mg/dL (0.70-1.30); EST Glomerular Filtration Rate 16 mL/min (>60); Est Glom Filt Rate - Afr Amer 19 mL/min (>60); Glucose 77 mg/dL (74-106); Potassium 4.4 mmol/L (3.5-5.1); Sodium Level 145 mmol/L (136-145)
== END ==
LOC: OLS.SANC 05:00
PROVIDERS: Visit Provider Internal Medicine
DX: N40.0 Benign prostatic hyperplasia without lower urinary tract symptoms (principal); J44.9 Chronic obstructive pulmonary disease, unspecified; I10 Essential (primary) hypertension; E78.5 Hyperlipidemia, unspecified; E03.9 Hypothyroidism, unspecified
CPT/HCPCS: 36415; 80048; 85027

== ENCOUNTER → 2024-05-11 | Outpatient (REF) | payer MEDICARE, MEDICAID, SELFPAY ==
[2024-05-11 08:14] LABS: Hematocrit 25.8 % (40-54); Hemoglobin 7.7 g/dL (13.0-16.5); Mean Corp Hgb Conc 29.8 g/dL (32-36); Mean Corpuscular Hgb 27.9 pg (27.0-32.0); Mean Corpuscular Volume 93.5 fL (80-94); Mean Platelet Vol. 10.1 fl (6.2-12.0); POSITIVE MORPHOLOGY YES; Platelet Count 177 K/mm3 (150-450); RBC Distribution Width CV 23.1 % (11.6-14.6); RBC Distribution Width SD 76.6 fl (35.1-43.9); Red Blood Count 2.76 M/mm3 (4.6-6.2); White Blood Count 6.8 K/mm3 (4.4-11.0)
[2024-05-11 08:31] LABS: Scan Indicated on CBC? Y/N YES- FLAGS NOTED
[2024-05-11 08:36] LABS: Differential Comment SCANNED
[2024-05-11 08:50] LABS: Anion Gap 5 (5-15); BUN 33 mg/dL (7-18); BUN/Creat Ratio 8.4 RATIO (10-20); Chloride 108 mmol/L (98-107); Creatinine, Serum 3.95 mg/dL (0.70-1.30); EST Glomerular Filtration Rate 17 mL/min (>60); Est Glom Filt Rate - Afr Amer 20 mL/min (>60); Glucose 79 mg/dL (74-106); Iron 47 ug/dL (65-175); Iron Binding Capacity,Total 216 ug/dL (250-450); Potassium 4.6 mmol/L (3.5-5.1); Sodium Level 143 mmol/L (136-145)
[2024-05-11 08:53] LABS: Vitamin B12 370 pg/mL (211-911)
== END ==
LOC: OLS.SANC 05:00
PROVIDERS: Visit Provider Internal Medicine
DX: D64.9 Anemia, unspecified (principal); I10 Essential (primary) hypertension; E03.9 Hypothyroidism, unspecified
CPT/HCPCS: 36415; 80048; 82607; 82746; 83540; 83550; 85027

== ENCOUNTER → 2024-05-18 | Outpatient (REF) | payer MEDICARE, MEDICAID, SELFPAY ==
[2024-05-18 07:51] LABS: Hematocrit 26.6 % (40-54); Mean Corp Hgb Conc 30.1 g/dL (32-36); Mean Corpuscular Hgb 28.6 pg (27.0-32.0); Mean Platelet Vol. 10.8 fl (6.2-12.0); POSITIVE MORPHOLOGY YES; Platelet Count 153 K/mm3 (150-450); RBC Distribution Width SD 81.6 fl (35.1-43.9); White Blood Count 5.8 K/mm3 (4.4-11.0)
[2024-05-18 08:02] LABS: Scan Indicated on CBC? Y/N YES- FLAGS NOTED
[2024-05-18 08:18] LABS: Anion Gap 6 (5-15); BUN 41 mg/dL (7-18); BUN/Creat Ratio 10.3 RATIO (10-20); Calcium,Total 9.2 mg/dL (8.5-10.1); Chloride 106 mmol/L (98-107); Creatinine, Serum 3.98 mg/dL (0.70-1.30); EST Glomerular Filtration Rate 16 mL/min (>60); Est Glom Filt Rate - Afr Amer 20 mL/min (>60); Glucose 77 mg/dL (74-106); Magnesium 2.5 mg/dL (1.6-2.6); Phosphorus 5.2 mg/dL (2.5-4.9); Potassium 4.5 mmol/L (3.5-5.1); Sodium Level 142 mmol/L (136-145)
== END ==
LOC: OLS.SANC 05:00
PROVIDERS: Visit Provider Internal Medicine
DX: D64.9 Anemia, unspecified (principal); I10 Essential (primary) hypertension; E03.9 Hypothyroidism, unspecified
CPT/HCPCS: 36415; 80048; 83735; 84100; 85027